=== PATIENT | male | born 1995 | race African-American/Black ===

== ENCOUNTER 2021-05-21 22:15 | Emergency (ER) | payer SELFPAY ==
[~2021-05-21] VITALS: Ht 190.5 cm; Wt 139.3 kg
[2021-05-21 22:40] VITALS: BP 160/81
[2021-05-21] MEDS ORDERED: CLOT15CR27 TP (22:50)
== END 2021-05-21 22:54 | disposition home or self-care (01) ==
LOC: ER 22:15
DX: R21 Rash and other nonspecific skin eruption (principal)